=== PATIENT | female | born 1945 | race Caucasian/White ===

== ENCOUNTER 2023-11-07 06:42 | Inpatient (IN) | payer OTHER ==
[2023-11-07] MEDS ORDERED: FUROSEMIDE 40 MG/4 ML VIAL ONE (07:28)
[2023-11-07 07:36] LABS: Absolute Lymphocytes (CBC) 0.2 K/uL (0.7-4.9); Absolute Monocytes 0.3 K/uL (0.1-1.3); Absolute Neutrophil 6.1 K/uL (1.8-8.0); Basophils % 0.2 % (0-1.3); Hematocrit 37.3 % (36.0-45.0); Lymphocytes % 3.3 % (15.3-44.8); MCH 31.3 pg (27.0-35.0); MCHC 34.8 g/dL (32.0-36.0); MPV 7.9 fL (7.6-11.3); Monocytes % 4.1 % (3.3-12.3); Neutrophils % 92.4 % (41.7-73.7); Nucleated Red Blood Cells % 0.1 % (0-0); Platelets 139 thou/uL (152-406); RBC Red Blood Cell Count 4.15 M/uL (3.86-4.86); Red Cell Distribution Width 13.5 % (12.1-15.2)
[2023-11-07 07:39] LABS: PT Prothrombin Time 15.1 SECONDS (9.5-12.5); Protime INR 1.39
[2023-11-07] MEDS ORDERED: KETOROLAC 30 MG/ML INJ ONE (07:43)
[2023-11-07] MEDS ORDERED: ONDANSETRON 4 MG/2 ML VIAL ONE (07:43)
[2023-11-07 07:59] LABS: Albumin 3.1 g/dL (3.4-5.0); Albumin/Globulin Ratio 0.7 (1.1-1.8); Anion Gap 8.6 mEq/L (5.0-15.0); Bilirubin Indirect, Calculated 1.2 mg/dL (0.2-0.8); Bilirubin Total 2.2 mg/dL (0.2-1.0); Globulin 4.6 g/dL (2.3-3.5); Protein, Total 7.7 g/dL (6.4-8.2); Troponin High Sensitivity 39.5 pg/mL (<58.9)
[2023-11-07 08:01] LABS: SARS-CoV-2 Antigen CONTROL BLUE LINE VIS/BG OK
[2023-11-07 08:02] LABS: SARS-CoV-2 Antigen Rapid Res Negative (Negative)
[2023-11-07 08:03] LABS: Potassium 2.6 mEq/L (3.5-5.1)
[2023-11-07 08:44] LABS: Platelet Estimate ADEQ; Platelets Clumped NOTED; White Blood Cell Scan OK (OK)
[2023-11-07 08:45] LABS: Blood Morphology Comment NOTED (NOT SEEN); Platelets, Giant NOTED; Rouleau NOTED
[2023-11-07] MEDS ORDERED: POTASSIUM CL SA 10 MEQ TAB PO ONE (09:30)
--- NOTE | 2023-11-07 09:38 | RAD REPORT ---
EXAM DESCRIPTION: Milagros Single View11/07/2023 8:07 am CLINICAL HISTORY: COUGH COMPARISON: CHEST SINGLE VIEW dated 01/26/2013; CHEST SINGLE VIEW dated 05/29/2008 TECHNIQUE: Portable AP view of the chest. FINDINGS: New ill-defined rounded/ovoid opacities in the midlung bilaterally and the right lower lob e. No pneumothorax or effusion. The cardiomediastinal contours are unremarkable. IMPRESSION: New bilateral airspace opacities as above, may represent areas of early pneumonitis or n odules of indeterminate origin. Additional evaluation by CT of the chest would be helpful.
[2023-11-07] MEDS ORDERED: NA CHLORIDE 0.9% 100 ML ONE (09:47)
[2023-11-07] MEDS ORDERED: CEFTRIAXONE 1000 MG/VIAL ONE (09:47)
--- NOTE | 2023-11-07 09:49 | ER ---
Nurse's Notes [facility] Name: Sherin Leon Age: 78 yrs Sex: Female : 1945 Arrival Date: 11/07/2023 Time: 06:42 Bed 8 Private MD: Diagnosis: Pulmonary edema;Hypokalemia;Hypoxia Presentation: 11/06 06:50 Chief complaint: Patient states: Been sick the last 2-3 days with SOB, cough, jw7 congestion, fever, and chest pain to right side during inspiration and expiration. 06:50 Coronavirus screen: congestion, cough unrelated to allergies, diarrhea, fatigue, fever, jw7 shortness of breath. Ebola Screen: No symptoms or risks identified at this time. Initial Sepsis Screen: Does the patient meet any 2 criteria? No. Patient's initial sepsis screen is negative. Does the patient have a suspected source of infection? No. Patient's initial sepsis screen is negative. Risk Assessment: Do you want to hurt yourself or someone else? Patient reports no desire to harm self or others. Onset of symptoms was November 04, 2023. Care prior to arrival: Medication(s) given: DuoNeb Tx X1 IV initiated. 20 GA, in the right antecubital area. 06:50 Method Of Arrival: EMS: [facility] 7 06:50 Acuity: RANDI 3 jw7 Triage Assessment: 06:50 General: Appears in no apparent distress. uncomfortable, Behavior is calm, cooperative, jw7 appropriate for age. Pain: Complains of pain in right lateral anterior chest Pain does not radiate. Pain currently is 10 out of 10 on a pain scale. Quality of pain is described as sharp, Pain began 2-3 days ago. Is intermittent. EENT: No deficits noted. No signs and/or symptoms were reported regarding the EENT system. Neuro: Level of Consciousness is awake, alert, obeys commands, Oriented to person, place, time, situation, Appropriate for age. Cardiovascular: Heart tones S1 S2 present Capillary refill < 3 seconds Clubbing of nail beds is absent JVD is absent Patient's skin is warm and dry. Respiratory: Reports shortness of breath cough that is Airway is patent Trachea midline Respiratory effort is even, unlabored, Respiratory pattern is regular, symmetrical, Breath sounds with rhonchi bilaterally. Onset: The symptoms/episode began/occurred 3 days ago, the patient has moderate shortness of breath. GI: Abdomen is round non-distended, Bowel sounds present X 4 quads. Abd is soft and non tender X 4 quads. : No deficits noted. No signs and/or symptoms were reported regarding the genitourinary system. Derm: Skin is intact, is healthy with good turgor, Skin is dry, Skin is normal, Skin temperature is warm. Musculoskeletal: Circulation, motion, and sensation intact. Range of motion: intact in all extremities. Historical: - Allergies: 06:50 No Known Allergies; jw7 - Home Meds: 06:50 Cozaar Oral [Active]; jw7 - PMHx: 06:50 Hypertension; Cellulitis; jw7 - PSHx: 06:50 Right Hip; jw7 - Immunization history:: Adult Immunizations up to date, Client reports having NOT received the Covid vaccine. Flu vaccine is not up to date. - Infectious Disease History:: Denies. - Social history:: Smoking status: Patient denies any tobacco usage or history of. Patient/guardian denies using alcohol, street drugs, IV drugs. - Family history:: not pertinent. Screenin:50 [facility] ED Fall Risk Assessment (Adult) History of falling in the last 3 months, jw7 including since admission No falls in past 3 months (0 pts) Confusion or Disorientation No (0 pts) Intoxicated or Sedated No (0 pts) Impaired Gait No (0 pts) Mobility Assist Device Used No (0 pt) Altered Elimination Yes (1 pt) Score/Fall Risk Level 0 - 2 = Low Risk Oriented to surroundings, Maintained a safe environment, Educated pt \T\ family on fall prevention, incl call for assistance when getting out of bed. Abuse screen: Denies threats or abuse. Denies injuries from another. Nutritional screening: No deficits noted. Tuberculosis screening: No symptoms or risk factors identified. Assessment: 07:05 General: Appears uncomfortable, ill, Behavior is calm, cooperative, appropriate for ll1 age. Pain: Complains of pain in right lateral anterior chest Quality of pain is described as aching. Cardiovascular: Rhythm is regular. Respiratory: Reports shortness of breath cough that is pain with cough Airway is patent Trachea midline Respiratory effort is even, labored, Respiratory pattern is regular, Breath sounds with crackles bilaterally. GI: Reports diarrhea, nausea. EENT: Reports nasal congestion. 08:01 Reassessment: No changes from previously documented assessment. Patient and/or family ll1 updated on plan of care and expected duration. Pain level reassessed. Patient is alert, oriented x 3, equal unlabored respirations, skin warm/dry/pink. 08:36 Reassessment: No changes from previously documented assessment. Patient and/or family ll1 updated on plan of care and expected duration. Pain level reassessed. Patient is alert, oriented x 3, equal unlabored respirations, skin warm/dry/pink. Patient states symptoms have improved. 09:35 Reassessment: No changes from previously documented assessment. Patient and/or family ll1 updated on plan of care and expected duration. Pain level reassessed. Patient is alert, oriented x 3, equal unlabored respirations, skin warm/dry/pink. 10:35 Reassessment: No changes from previously documented assessment. Patient and/or family ll1 updated on plan of care and expected duration. Pain level reassessed. Patient is alert, oriented x 3, equal unlabored respirations, skin warm/dry/pink. 10:50 Reassessment: Wanted to stay in her own clothes. 1 Vital Signs: 06:50 BP 148 / 64; Pulse 105; Resp 20 S; Temp 99.1(O); Pulse Ox 97% on R/A; Weight 72.57 kg; jw7 Height 5 ft. 6 in. ; Pain 10/10; 07:30 BP 150 / 72; Pulse 95; Resp 20; Pulse Ox 86% on 1.5 lpm NC; ll1 08:04 Pulse 95; Resp 20; Pulse Ox 91% on 3 lpm NC; ll1 09:04 BP 144 / 69; Pulse 97; Resp 19; Pulse Ox 91% on 4 lpm NC; ll1 09:48 BP 127 / 90; Pulse 94; Resp 20; Pulse Ox 91% on 4 lpm NC; ph 10:44 BP 159 / 84; Pulse 96; Resp 20; Temp 99.5(O); Pulse Ox 91% on 4 lpm NC; ll1 06:50 Body Mass Index 25.82 (72.57 kg, 167.64 cm) [facility] 06:50 Pain Scale: Adult [facility] 08:04 O2 sat. 80-88%, Dr. Castellanos informed. Upped to 4 L NC ll1 10:44 90%-93% O2 4L NC ll1 ED Course: 06:50 Patient arrived in ED. jj6 06:50 Arm band placed on. jw7 06:50 Patient has correct armband on for positive identification. Bed in low position. Call jw7 light in reach. Side rails up X 1. Provided Education on: Use of Call Light. Client placed on continuous cardiac and pulse oximetry monitoring. NIBP monitoring applied. 06:50 Maintain EMS IV. Dressing intact. Good blood return noted. Site clean \T\ dry. Gauge \T\ jw 7 site: 20g RAC. 06:57 Suman Castellanos MD is Attending Physician. rt 07:05 Initial lab(s) drawn, by me, sent to lab. ll1 07:12 Triage completed. jw7 07:20 COVID swab sent to lab. Flu and/or RSV swab sent to lab. Strep swab sent to lab. ll1 07:24 Jasmin Fall, RN is Primary Nurse. ll1 07:24 SARS RAPID Sent. ll1 07:24 Flu Sent. ll1 07:24 Strep Sent. ll1 07:24 Blood Culture Adult (2) Sent. ll1 07:24 EKG done, by ED staff, reviewed by Suman Castellanos MD. em1 07:25 Second set of blood cultures drawn by me. ll1 08:07 XRAY Chest (1 view) In Process Unspecified. EDMS 08:37 Lights dimmed. Warm blanket given. ll1 08:37 PO fluids given. ice chips. ll1 08:37 yellow fall socks applied. New brief at BS. ll1 09:47 Nia Lara MD is Hospitalizing Provider. rt 10:16 CT Chest W/ Con In Process Unspecified. EDMS 10:30 Repeat lab(s) drawn. by me, sent to lab. ll1 Administered Medications: 07:04 CANCELLED (Duplicate Order): ns 0.9% 500 ml IV at bolus once rt 07:04 CANCELLED (Duplicate Order): ns 0.9% 1000 ml IV at 125 ml/hr continuous rt 07:04 CANCELLED (Duplicate Order): rocephin1 grams IV at per protocol once; Given slow IV rt push per pharmacy instructions 07:34 Drug: Furosemide IVP 40 mg IVP once; give over 2 minutes Route: IVP; Site: right ll1 antecubital; 10:37 Follow up: Response: No adverse reaction ll1 07:59 Not Given (Patient Refused): nitroglycerin0.4 mg Sublingual once; every five minute if ll1 needed x3 07:59 Drug: Ondansetron IVP 4 mg IVP once; over 2 minutes Route: IVP; Site: right antecubital;ll1 10:38 Follow up: Response: No adverse reaction ll1 09:35 Drug: Potassium Chloride PO Liquid 40 mEq PO once Route: PO; ll1 10:38 Follow up: Response: No adverse reaction ll1 10:33 Drug: Rocephin - Rocephin (cefTRIAXone) IVPB 2 grams IVPB once over 30 mins; (mix in ll1 100 mL NS) Route: IVPB; Infused Over: 30 mins; Site: right antecubital; 11:32 Drug: NS 0.9% IV 1000 ml IV at 1 bolus Per protocol; 1000 mL bolus Route: IV; Rate: 1 ph bolus; Site: right antecubital; Outcome: 09:48 Decision to Hospitalize by Provider. rt 11:32 Patient left the ED. ph Signatures: Dispatcher [employer] Marcelo Calix em1 Eun Pablo RN RN ph Jasmin Fall RN RN ll1 Mayuri Stockj6 Marce Garcia RN RN jw7 Suman Castellanos MD MD rt Corrections: (The following items were deleted from the chart) 09:06 08:04 Pulse 95bpm; Resp 20bpm; Pulse Ox 91% 3 lpm Nasal Cannula; ll1 ll1
--- NOTE | 2023-11-07 09:49 | EDPHYS ---
Physician Documentation [facility] Name: Sherin Leon Age: 78 yrs Sex: Female : 1945 Arrival Date: 11/07/2023 Time: 06:42 Bed 8 Private MD: ED Physician Suman Castellanos HPI: 11/06 07:50 This 78 yrs old Female presents to ER via EMS with complaints of Breathing Difficulty. rt 07:50 Patient presents to the ED with about 2 days of cough, right-sided chest pain, rt difficulty breathing. Is been progressively worsening. States that the symptoms are worse at nighttime. Denies other acute complaints at this time, symptoms are moderate in severity, no other aggravating or alleviating factors.. Historical: - Allergies: 06:50 No Known Allergies; jw7 - Home Meds: 06:50 Cozaar Oral [Active]; jw7 - PMHx: 06:50 Hypertension; Cellulitis; jw7 - PSHx: 06:50 Right Hip; jw7 - Immunization history:: Adult Immunizations up to date, Client reports having NOT received the Covid vaccine. Flu vaccine is not up to date. - Infectious Disease History:: Denies. - Social history:: Smoking status: Patient denies any tobacco usage or history of. Patient/guardian denies using alcohol, street drugs, IV drugs. - Family history:: not pertinent. ROS: 07:50 Constitutional: Negative for fever, chills, and weight loss, Abdomen/GI: Negative for rt abdominal pain, nausea, vomiting, diarrhea, and constipation, MS/Extremity: Negative for injury and deformity, Skin: Negative for injury, rash, and discoloration, Neuro: Negative for headache, weakness, numbness, tingling, and seizure, 07:50 Cardiovascular: Positive for chest pain, Negative for edema, 07:50 Respiratory: Positive for cough, shortness of breath, Exam: 07:50 Constitutional: This is a well developed, well nourished patient who is awake, alert, rt and in no acute distress. Head/Face: Normocephalic, atraumatic. Chest/axilla: Normal chest wall appearance and motion. Nontender with no deformity. No lesions are appreciated. Cardiovascular: Regular rate and rhythm with a normal S1 and S2. No gallops, murmurs, or rubs. Normal PMI, no JVD. No pulse deficits. Abdomen/GI: Soft, non-tender, with normal bowel sounds. No distension or tympany. No guarding or rebound. No evidence of tenderness throughout. Skin: Warm, dry with normal turgor. Normal color with no rashes, no lesions, and no evidence of cellulitis. MS/ Extremity: Pulses equal, no cyanosis. Neurovascular intact. Full, normal range of motion. Neuro: Awake and alert, GCS 15, oriented to person, place, time, and situation. Cranial nerves II-XII grossly intact. Motor strength 5/5 in all extremities. Sensory grossly intact. Cerebellar exam normal. Normal gait. 07:50 ECG was reviewed by the Attending Physician. 07:50 Respiratory: Crackles heard on all lung rodriguez, no respiratory distress, Vital Signs: 06:50 BP 148 / 64; Pulse 105; Resp 20 S; Temp 99.1(O); Pulse Ox 97% on R/A; Weight 72.57 kg; jw7 Height 5 ft. 6 in. ; Pain 10/10; 07:30 BP 150 / 72; Pulse 95; Resp 20; Pulse Ox 86% on 1.5 lpm NC; ll1 08:04 Pulse 95; Resp 20; Pulse Ox 91% on 3 lpm NC; ll1 09:04 BP 144 / 69; Pulse 97; Resp 19; Pulse Ox 91% on 4 lpm NC; ll1 09:48 BP 127 / 90; Pulse 94; Resp 20; Pulse Ox 91% on 4 lpm NC; ph 10:44 BP 159 / 84; Pulse 96; Resp 20; Temp 99.5(O); Pulse Ox 91% on 4 lpm NC; ll1 06:50 Body Mass Index 25.82 (72.57 kg, 167.64 cm) [facility] 06:50 Pain Scale: Adult [facility] 08:04 O2 sat. 80-88%, Dr. Castellanos informed. Upped to 4 L NC ll1 10:44 90%-93% O2 4L NC ll1 MDM: 06:58 Patient medically screened. rt 09:50 Differential diagnosis: CHF exacerbation, Chronic Obstructive Pulmonary Disease rt pulmonary edema. Data reviewed: vital signs, nurses notes, lab test result(s), EKG, radiologic studies. Consideration of Admission/Observation Patient was admitted/placed on observation. Management of patient was discussed with the following: Hospitalist: Agrees to admit. Independent interpretation of the following test(s) in the Emergency Department X-Ray: My interpretation is Pulmonary edema seen on interpretation of x-ray images. Counseling: I had a detailed discussion with the patient and/or guardian regarding the historical points, exam findings, and any diagnostic results supporting the discharge/admit diagnosis, lab results, radiology results, the need for further work-up and treatment in the hospital. Response to treatment: the patient's symptoms have mildly improved after treatment. ED course: Clinically, I believe that the patient is volume overloaded. Suspect pulmonary edema as the etiology. Will cover empirically given possible pneumonitis, CT scan is ordered. Patient to be admitted for further care.. 11/06 06:56 Order name: Basic Metabolic Panel; Complete Time: 08:09 [facility] 11/06 06:56 Order name: CBC with Diff; Complete Time: 08:46 [facility] 11/06 06:56 Order name: LFT's; Complete Time: 08:09 [facility] 11/06 06:56 Order name: Magnesium; Complete Time: 08:09 [facility] 11/06 06:56 Order name: NT PRO-BNP; Complete Time: 08:09 [facility] 11/06 06:56 Order name: PT-INR; Complete Time: 08:09 [facility] 11/06 06:56 Order name: Troponin HS; Complete Time: 08:09 [facility] 11/06 06:56 Order name: Blood Culture Adult (2) [facility] 11/06 06:56 Order name: Lactate w/ 2H reflex if indic.; Complete Time: 08:09 [facility] 11/06 06:56 Order name: SARS RAPID; Complete Time: 08:09 [facility] 11/06 06:56 Order name: Flu; Complete Time: 08:09 [facility] 11/06 06:56 Order name: Strep; Complete Time: 08:09 [facility] 11/06 07:42 Order name: CBC Smear Scan; Complete Time: 08:46 [facility] 11/06 11:05 Order name: Lactate Sepsis 2 HR Follow-up; Complete Time: 11:10 [facility] 11/06 06:56 Order name: XRAY Chest (1 view); Complete Time: 09:39 [facility] 11/06 09:47 Order name: CT Chest W/ Con rt 11/06 06:56 Order name: EKG; Complete Time: 06:57 [facility] 11/06 06:56 Order name: Cardiac monitoring; Complete Time: 07:24 [facility] 11/06 06:56 Order name: EKG - Nurse/Tech; Complete Time: 07:24 [facility] 11/06 06:56 Order name: IV Saline Lock; Complete Time: 07:24 [facility] 11/06 06:56 Order name: Labs collected and sent; Complete Time: 07:24 [facility] 11/06 06:56 Order name: O2 Per Protocol; Complete Time: 07:24 [facility] 11/06 06:56 Order name: O2 Sat Monitoring; Complete Time: 07:24 [facility] EC:50 Rate is 104 beats/min. Rhythm is regular, Sinus tachycardia with No ectopy. QRS Burns is rt Normal. CA interval is normal. QRS interval is normal. QT interval is normal. No Q waves. T waves are Normal. No ST changes noted. Interpreted by me. Administered Medications: 07:04 CANCELLED (Duplicate Order): ns 0.9% 500 ml IV at bolus once rt 07:04 CANCELLED (Duplicate Order): ns 0.9% 1000 ml IV at 125 ml/hr continuous rt 07:04 CANCELLED (Duplicate Order): rocephin1 grams IV at per protocol once; Given slow IV rt push per pharmacy instructions 07:34 Drug: Furosemide IVP 40 mg IVP once; give over 2 minutes Route: IVP; Site: right ll1 antecubital; 10:37 Follow up: Response: No adverse reaction ll1 07:59 Not Given (Patient Refused): nitroglycerin0.4 mg Sublingual once; every five minute if ll1 needed x3 07:59 Drug: Ondansetron IVP 4 mg IVP once; over 2 minutes Route: IVP; Site: right antecubital;ll1 10:38 Follow up: Response: No adverse reaction ll1 09:35 Drug: Potassium Chloride PO Liquid 40 mEq PO once Route: PO; ll1 10:38 Follow up: Response: No adverse reaction ll1 10:33 Drug: Rocephin - Rocephin (cefTRIAXone) IVPB 2 grams IVPB once over 30 mins; (mix in ll1 100 mL NS) Route: IVPB; Infused Over: 30 mins; Site: right antecubital; 11:32 Drug: NS 0.9% IV 1000 ml IV at 1 bolus Per protocol; 1000 mL bolus Route: IV; Rate: 1 ph bolus; Site: right antecubital; Disposition: 09:50 Critical Care:. rt Disposition Summary: 11/07/23 09:48 Hospitalization Ordered Notes: Hospitalization Status: Observation rt Provider: Nia Lara rt Location: Telemetry/MedSurg (observation) rt Condition: Fair rt Problem: new rt Symptoms: have improved rt Bed/Room Type: Standard rt Room Assignment: 230(11/07/23 10:48) eb Diagnosis - Pulmonary edema rt - Hypokalemia rt - Hypoxia rt Forms: - Medication Reconciliation Form rt - SBAR form rt - Leadership Thank You Letter rt Critical care time excluding procedures: 09:50 Critical care time: Bedside Care: 30 minutes, Consultation: 5 minutes. Total time: 35 rt minutes Signatures: Dispatcher [employer] EDGo Guerrero MD MD cha Hall, Patricia RN RN ph Kateryna Farmer Lynsay, RN RN ll1 Marce Garcia RN RN jw7 Suman Castellanos MD MD rt Corrections: (The following items were deleted from the chart) 06:57 06:56 BASIC METABOLIC PANEL+C.LAB.BRZ ordered. EDMS EDMS 06:57 06:56 CBC+H.LAB.BRZ ordered. EDMS EDMS 06:57 06:56 HEPATIC FUNCTION+C.LAB.BRZ ordered. EDMS EDMS 06:57 06:56 MAGNESIUM+C.LAB.BRZ ordered. EDMS EDMS 06:57 06:57 PROBNP+C.LAB.BRZ ordered. EDMS EDMS 06:57 06:57 PROTIME (+INR)+COAG.LAB.BRZ ordered. EDMS EDMS 06:57 06:57 Troponin High Sensitivity+C.LAB.BRZ ordered. EDMS EDMS 06:57 06:57 BLOOD CULTURE*+BA.LAB.BRZ ordered. EDMS EDMS 06:57 06:57 LACTATE+C.LAB.BRZ ordered. EDMS EDMS 06:57 06:57 SARS-COV-2 Antigen Rapid+I.LAB.BRZ ordered. EDMS EDMS 06:57 06:57 Influenza Screen (A \T\ B)+BA.LAB.BRZ ordered. EDMS EDMS 06:57 06:57 Group A Streptococcus Rapid Sc+BA.LAB.BRZ ordered. EDMS EDMS 07:04 06:56 NS 0.9% IV 500 ml IV at bolus once ordered. ta rt 07:04 06:56 NS 0.9% IV 1000 ml IV at 125 ml/hr continuous ordered. [facility] rt 07:04 06:56 Rocephin IV 1 grams IV at per protocol once; Given slow IV push per pharmacy rt instructions ordered. [facility] 10:48 09:48 rt eb
--- NOTE | 2023-11-07 10:33 | P.HP ---
Certification for Inpatient Patient admitted to: Inpatient <Abbi Chery - Last Filed: 11/07/23 12:59> Patient History Date of Service: 11/07/23 Reason for admission: Pneumonia, elevated BNP History of Present Illness: 78-year-old female with a past medical history of hypertension, cellulitis, resents to the emergency room with shortness of breath started 3 days ago. Getting progressively worse. She reports right-sided chest pain, radiates to the back, no reported history of TX, PCI. She reports shortness of breath is worse with exertion, she reports productive cough. She denies history of asthma, COPD, history of lung disease. No history of tobacco use, she reports chest pain no reported diaphoresis, headache, edema, nausea vomiting diarrhea. Plan to admit for atypical chest pain, sepsis secondary to pneumonia, Hypokalemia, Hypoxia, CT of the chest IMPRESSION: Multifocal airspace opacities as above, concerning for multifocal pneumonia. Chest x-ray IMPRESSION: New bilateral airspace opacities as above, may represent areas of early pneumonitis or nodules of indeterminate origin. sepsis secondary to pneumonia, laboratory evaluation elevated lactic 2.3 4.2, IV Rocephin, azithromycin ordered, nebs, potassium replacement, IV fluid normal saline x 2 L ordered, elevated BNP 1348, Lasix x 1 given, serial troponins ordered initial troponin 39.5, will order echo for the a.m., cardiology consult - Past Medical/Surgical History Diabetic: No -: Gerd -: chronic back and knee pain - Social History Alcohol use: Yes CD- Drugs: No Caffeine use: Yes <Abbi Chery - Last Filed: 11/07/23 12:59> Date of Service: 11/07/23 <Nia Lara - Last Filed: 11/08/23 04:57> Allergies No Known Allergies Allergy (Verified 01/27/13 09:25) Home Medications: Omeprazole [Prilosec] 40 mg PO DAILY 01/27/13 Losartan/Hydrochlorothiazide [Losartan-Hctz 50-12.5 mg Tab] 1 each PO DAILY 11/07/23 Review of Systems Per HPI <Abbi Chery - Last Filed: 11/07/23 12:59> Physical Examination - Physical Exam General: Alert, Mild distress, Other (Oriented x 3, has been) HEENT: Atraumatic, Normocephalic Neck: Supple, JVD not distended Respiratory: Crackles/rales, Expiratory wheezes, Inspiratory wheezes Cardiovascular: Other (Tachycardia) Capillary refill: <2 Seconds Gastrointestinal: Normal bowel sounds, Soft and benign Musculoskeletal: No clubbing, No swelling Integumentary: No breakdown, No significant lesion Neurological: Normal speech, Normal strength at 5/5 x4 extr, Other (Generalized weak) - Studies Laboratory Data (last 24 hrs) 11/07/23 11/07/23 11/07/23 07:05 07:05 07:05 WBC 6.60 Hgb 13.0 Hct 37.3 Plt Count 139 L PT 15.1 H INR 1.39 Sodium 136 Potassium 2.6 L* BUN 23 H Creatinine 1.08 H Glucose 102 Magnesium 2.0 Total Bilirubin 2.2 H AST 39 H ALT 39 Alkaline Phosphatase 68 Microbiology Data (last 24 hrs): 11/07/23 07:19 Nasopharnyx Influenza Type A Antigen Screen - Final 11/07/23 07:19 Nasopharnyx Influenza Type B Antigen Screen - Final 11/07/23 07:17 Throat Group A Streptococcus Rapid Screen - Final <Abbi Chery - Last Filed: 11/07/23 12:59> - Studies Laboratory Data (last 24 hrs) 11/07/23 11/07/23 11/07/23 07:05 07:05 07:05 WBC 6.60 Hgb 13.0 Hct 37.3 Plt Count 139 L PT 15.1 H INR 1.39 Sodium 136 Potassium 2.6 L* BUN 23 H Creatinine 1.08 H Glucose 102 Magnesium 2.0 Total Bilirubin 2.2 H AST 39 H ALT 39 Alkaline Phosphatase 68 Microbiology Data (last 24 hrs): 11/07/23 07:19 Nasopharnyx Influenza Type A Antigen Screen - Final 11/07/23 07:19 Nasopharnyx Influenza Type B Antigen Screen - Final 11/07/23 07:17 Throat Group A Streptococcus Rapid Screen - Final <Nia Lara - Last Filed: 11/08/23 04:57> Assessment and Plan - Plan Assessment plan Sepsis secondary to pneumonia without shock Acute hypoxic respiratory failure secondary to pneumonia Lactic acidosis Pulmonary consult, O2 2 L keep sats greater than 90 2L normal saline (after repeat increasing lactic, given IV Rocephin, (added aft er worsening lactic) azithromycin given, albuterol elevated lactic 2.3 4.2, IV Rocephin, azithromycin ordered, nebs, potassium replacement, IV fluid normal saline x 2 L ordered, Trend lactic, 2.3, o2 L keep sats greater than 90% shortness of breath started 3 days ago. Getting progressively worse. She reports right-sided chest pain, radiates to the back, no reported history of TX, PCI. She reports shortness of breath is worse with exertion, she reports productive cough. She denies history of asthma, COPD, history of lung disease. No history of tobacco use CT of the chest IMPRESSION: Multifocal airspace opacities as above, concerning for multifocal pneumonia. Chest x-ray IMPRESSION: New bilateral airspace opacities as above, may represent areas of early pneumonitis or nodules of indet erminate origin. sepsis secondary to pneumonia, laboratory evaluation Atypical chest pain Elevated BNP Cardiology, consult, telemetry EKGRate is 104 beats/min. Rhythm is regular, Sinus tachycardia with No ectopy. QRS [place] is Normal. [place] interval is normal. QRS interval is normal. QT interval is normal. No Q waves. T waves are Normal. No ST changes noted Recently started on Hyzaar, no cardiac history no history of CHF no history of PCI Initial troponin negative, initial troponin 39.5, Lasix 40 x 1 elevated BNP 1348, , will order echo for the a.m., Trend troponinn BNP Transaminitis AST elevated 30 ALT 39 History hypertension recently started on Hyzaar History cellulitis Full code Cardiac diet DVT Lovenox Disposition Home independent prior Discharge Plan: Home - Advance Directives Does patient have a Living Will: No Does patient have a Durable POA for Healthcare: No - Code Status/Comfort Care Code Status: Full Code Critical Care: No Time Spent Managing Pts Care (In Minutes): 55 <Abbi Chery - Last Filed: 11/07/23 12:59> Date of Service: 11/07/23 Patient is a 78yo who was admitted to the hospital with respiratory failure. I came to see the patient and she was in respiratory distress. We moved her to [facility]. She was on BiPAP. She appears to have a pneumonic infiltrate. Unable to follow-up CT imaging from multiple computers. Continue with nebs along with antibiotic regimen. Patient's BNP is elevated as well as troponin. Cardiology consultation awaiting echocardiogram. Will wean off of BiPAP support shortly. Patient chart was reviewed and patient was seen and examined. GREGORY history and physical reviewed as well. Agree with assessment and plan as mentioned above. Most of the MDM was done by myself and plan of care was discussed with GREGORY as well as the patient. Anticipated length of stay is 3 to 4 days. <Nia Lara - Last Filed: 11/08/23 04:57>
[2023-11-07] MEDS ORDERED: MORPHINE 4 MG/ML SYR IV PRN (10:45)
[2023-11-07] MEDS ORDERED: NA CHLORIDE 0.9% 1,000 ML ONE (11:21)
--- NOTE | 2023-11-07 11:27 | RAD REPORT ---
EXAM DESCRIPTION: CT - Thorax W/ Con - 11/07/2023 10:15 am CLINICAL HISTORY: COUGH COMPARISON: CTANGIO CHEST FOR PE dated 05/29/2008; Chest Single View dated 11/07/2023 TECHNIQUE: Axial thin cut images of the chest were obtained without IV contrast. Multiplanar reforma ts were generated and reviewed. All CT scans are performed using dose optimization technique as appropriate and may include automated exposure control or mA/KV adjustment according to patient size. FINDINGS: Multiple rounded/ovoid ill-defined consolidative opacities throughout both lungs. Addition al dependent subsegmental airspace opacities largest in the right lower lobe. No pleural thickening o r pleural effusion. No pneumothorax. No abnormal mediastinal or hilar masses or lymphadenopathy seen. No significant aortic or pulmonary a rtery findings. Assessment is limited in the absence of IV contrast. No chest wall mass or abnormal axillary lymphadenopathy. Evaluation of the solid abdominal structures reveals no suspicious findings. Diverticulum arising fro m the gastric fundus is incidentally noted. IMPRESSION: Multifocal airspace opacities as above, concerning for multifocal pneumonia.
[2023-11-07] MEDS: NA CHLORIDE 0.9% 1,000 ML IV ONE ×2 (12:08→12:30)
[2023-11-07] MEDS: KCL 20 MEQ/100 mL IVPB 20 MEQ/100 ML BAG IV SCH (12:53)
[2023-11-07] MEDS: METHYLPREDNISOLONE 125 MG INJ IV ONE (12:54)
[2023-11-07] MEDS: FUROSEMIDE 40 MG/4 ML VIAL IV ONE (13:04)
[2023-11-07] MEDS: MORPHINE 4 MG/ML SYR IV ONE (13:05)
[2023-11-07] MEDS: ALBUTEROL 2.5 MG/3 ML NEB SOL NEB PRN (13:36)
[2023-11-07] MEDS: HYDRALAZINE HCL 20 MG/ML VIAL IV ONE (13:39)
[2023-11-07] MEDS: AZITHROMYCIN IV 500 MG in NA CHLORIDE 0.9% 250 ML IVPB SCH (13:47)
[2023-11-07 14:02] LABS: Anion Gap 9.8 mEq/L (5.0-15.0); Potassium 2.8 mEq/L (3.5-5.1)
[2023-11-07 14:43] LABS: Sqamous Epithelial <5 /HPF (None Seen); Urine Bacteria <20 /HPF (<20); Urine Bilirubin NEGATIVE (Negative); Urine Blood Negative (Negative); Urine Clarity Clear (Clear); Urine Color Light-Yellow (Yellow); Urine Culture Reflex Order NOT NEEDED; Urine Glucose NEGATIVE (Negative); Urine Ketones NEGATIVE (Negative); Urine Microscopic Reflex YN ORDER UMIC; Urine Mucus Slight /HPF (None Seen); Urine Nitrite NEGATIVE (Negative); Urine Protein TRACE (Negative); Urine Urobilinogen Normal (Normal); Urine WBC <5 /HPF (<5)
[2023-11-07] MEDS: ACETAMINOPHEN 500 MG TAB PO PRN (15:03)
[2023-11-07] MEDS: ACETAMINOPHEN 500 MG TAB PO ONE (15:37)
[2023-11-07] MEDS: METOPROLOL TARTRATE 5 MG/5 ML INJ IV STA ×2 (15:40→15:49)
[2023-11-07] MEDS: ENOXAPARIN 80 MG/0.8 ML SQ ONE (15:45)
[2023-11-07 16:14] LABS: Arterial Blood Carboxyhemoglob 1.1 % (0-1.5); Blood Gas THB 13.9 g/dl (12-18)
[2023-11-07] MEDS: KETOROLAC 30 MG/ML INJ IV ONE (16:48)
[2023-11-07] MEDS: PNEUMOCOCCAL VACCINE 0.5 ML IMVAC ONE (17:00)
[2023-11-07 17:32] LABS: Anion Gap 9.2 mEq/L (5.0-15.0); Magnesium 1.8 mg/dL (1.6-2.4); Potassium 3.2 mEq/L (3.5-5.1)
[2023-11-07] MEDS: METOPROLOL TARTRATE 5 MG/5 ML INJ IV ONE (19:14)
[2023-11-07] MEDS: MAGNESIUM SULFATE 1 gm IVPB 1 GM/100 ML BAG IV ONE (19:59)
[2023-11-07] MEDS: ATORVASTATIN 40 MG TAB PO SCH (19:59)
[2023-11-07] MEDS: POTASSIUM CL SA 10 MEQ TAB PO ONE (19:59)
[2023-11-07] MEDS ORDERED: SODIUM CHLORIDE 1 GM TAB PO ONE (21:09)
--- NOTE | 2023-11-07 21:14 | CON ---
Date of Consultation: 11/07/2023 Reason For Consultation: Elevated NT-proBNP and troponin. History Of Present Illness: 78-year-old female with history of hypertension, presented to the emerge ncy room with shortness of breath and right-sided chest pain, productive cough. On the floor, she be came very hypoxic and tachypneic and tachycardiac. She was sent to the emergency room. Her NT-proBN P was elevated. She was given 1 dose of Lasix. She denies having any orthopnea or lower extremity e michele. Past Medical History: As outlined above in the HPI. Medications: Refer to reconciliation sheet for detailed list. Allergies: NO KNOWN DRUG ALLERGIES. Family History: No premature coronary artery disease or cancer. Social History: She does not smoke or drink. Does not use any drugs. Review of Systems: All systems reviewed and they were negative except as mentioned in the HPI. Physical Examination: Vital Signs: Reviewed. Head and Neck: Pupils are equal, reactive to light. Intact eye movements. No JVD. No cervical lym phadenopathy. Neck is supple. Thyroid is not enlarged. Lungs: Rhonchi bilaterally. No accessory muscle use or muscle retraction. Heart: Regular rate and rhythm. No extra sounds. Tachycardic. Abdomen: Soft, nontender. Bowel sounds positive. No organomegaly. No masses or hernia. No rigidi ty or rebound. Extremities: No edema. No clubbing or cyanosis. Intact pules. Skin: No rash. Neurologic: Alert, awake, oriented x3. No acute focal deficits appreciated. Investigations: Her troponins peaked at 90. NT-proBNP is elevated at 1300 range. BUN 21, creatinin e 1.29, and white blood cell count 6.6. CT scan showed bilateral pneumonia. Assessment/recommendations: 1.Acute respiratory failure due to pneumonia. Recommend wide-spectrum antibiotics. Blood and sputu m cultures and noninvasive ventilation with BiPAP if need be and high-flow oxygen. 2.Elevated NT-proBNP. She probably has chronic heart failure condition, but she is not fluid overlo aded clinically. Obtain an echo. I recommend to wait on any diuresis for now until we get the echo and further understand her heart status. 3.Hypertension. Blood pressure is elevated. Resume home medications. 4.Tachycardia. It is sinus tachycardia due to the presence of infection and fever. Nothing to do h ere from cardiac rodriguez, just to monitor and obtain echo tomorrow. 5.Dyslipidemia. Continue statin. SR/MODL Voice ID: [id number] Report ID: [id number]
[2023-11-08 05:12] LABS: Absolute Lymphocytes (CBC) 0.3 K/uL (0.7-4.9); Absolute Monocytes 0.6 K/uL (0.1-1.3); Hematocrit 34.5 % (36.0-45.0); Hemoglobin 11.9 g/dL (12.0-15.0); Lymphocytes % 2.4 % (15.3-44.8); MCH 31.1 pg (27.0-35.0); MCHC 34.5 g/dL (32.0-36.0); MCV 89.9 fL (80-100); MPV 9.3 fL (7.6-11.3); Monocytes % 5.6 % (3.3-12.3); Nucleated Red Blood Cells % 0.2 % (0-0); Platelets 144 thou/uL (152-406); RBC Red Blood Cell Count 3.84 M/uL (3.86-4.86); Red Cell Distribution Width 13.6 % (12.1-15.2)
[2023-11-08 05:31] LABS: Anion Gap 9.7 mEq/L (5.0-15.0); Magnesium 2.4 mg/dL (1.6-2.4); Potassium 3.7 mEq/L (3.5-5.1)
[2023-11-08] MEDS: ASPIRIN EC 81 MG TAB PO SCH (08:47)
[2023-11-08] MEDS: METHYLPREDNISOLONE 125 MG INJ IV SCH (08:47)
[2023-11-08] MEDS: CEFTRIAXONE 1,000 MG in NA CHLORIDE 0.9% 50 ML IVPB SCH (08:47)
--- NOTE | 2023-11-08 11:36 | P.PN ---
Subjective Date of Service: 11/08/23 Chief Complaint: Pneumonia, elevated BNP Subjective: No new changes Review of Systems 10-point ROS is otherwise unremarkable Physical Examination - Vital Signs Temperature: 97.1 F Blood Pressure: 108/63 Pulse: 94 Respirations: 18 Pulse Ox (%): 95 - Physical Exam General: Alert, In no apparent distress HEENT: Atraumatic, PERRLA, EOMI Neck: Supple, JVD not distended Respiratory: Clear to auscultation bilaterally, Normal air movement Cardiovascular: Regular rate/rhythm, Normal S1 S2 Gastrointestinal: Normal bowel sounds, No tenderness Musculoskeletal: No tenderness Integumentary: No rashes Neurological: Normal speech, Normal tone, Normal affect Lymphatics: No axilla or inguinal lymphadenopathy - Studies Microbiology Data (last 24 hrs): 11/07/23 07:19 Nasopharnyx Influenza Type A Antigen Screen - Final 11/07/23 07:19 Nasopharnyx Influenza Type B Antigen Screen - Final 11/07/23 07:17 Throat Group A Streptococcus Rapid Screen - Final Medications List Reviewed: Yes Assessment And Plan - Current Problems (Diagnosis) (1) Chronic heart failure Current Visit: Yes Status: Acute Plan: Patient looks euvolemic on exam, SOB and tachycardia and right sided chest pain are most likely due to PNA. Continue antibiotics. follow up on echo hold on diuresis (2) HTN (hypertension) Current Visit: Yes Status: Acute Plan: BP is soft, most likely secondary to infection, at home patient is on losartan/HCTZ, continue to hold. (3) HLD (hyperlipidemia) Current Visit: Yes Status: Acute Plan: continue lipitor 40 mg daily.
[2023-11-08] MEDS ORDERED: MIDODRINE HCL 5 MG TABLET PO SCH (11:47)
--- NOTE | 2023-11-08 11:55 | P.PN ---
Subjective Date of Service: 11/08/23 Chief Complaint: Pneumonia, elevated BNP Pt is resting comfortably in bed. She used BIPAP last night. Currently using 9L BNC. She is getting rocephin and flagyl. No other complaints. Review of Systems General: Unremarkable Eyes: Unremarkable ENT: Unremarkable Respiratory: SOB with Excertion Cardiovascular: Unremarkable Gastrointestinal: Unremarkable Genitourinary: Unremarkable Musculoskeletal: Unremarkable Integumentary: Unremarkable Neurological: Unremarkable Lymphatics: Unremarkable Physical Examination - Vital Signs Temperature: 97.1 F Blood Pressure: 108/63 Pulse: 94 Respirations: 18 Pulse Ox (%): 95 - Physical Exam General: Alert, In no apparent distress, Oriented x3 HEENT: Atraumatic, Normocephalic, PERRLA Neck: Supple, 2+ carotid pulse no bruit, JVD not distended Respiratory: Normal air movement, Diminished, Crackles/rales Cardiovascular: No edema, Normal pulses, Regular rate/rhythm, Normal S1 S2 Capillary refill: <2 Seconds Gastrointestinal: Normal bowel sounds, Soft and benign, Non-distended Musculoskeletal: No clubbing, No swelling - Studies Microbiology Data (last 24 hrs): 11/07/23 07:19 Nasopharnyx Influenza Type A Antigen Screen - Final 11/07/23 07:19 Nasopharnyx Influenza Type B Antigen Screen - Final 11/07/23 07:17 Throat Group A Streptococcus Rapid Screen - Final Medications List Reviewed: Yes Assessment And Plan - Plan Severe sepsis secondary to pneumonia without shock: Will continue 9L BNC, prn BIPAP, rocephin and azithro. F/u blood cx. lactate is 2.8 Acute hypoxic respiratory failure secondary to pneumonia: will continue treatment listed above. CT chest and CXR shows multifocal pna. Atypical chest pain: Will r/o ACS. troponin is 39.5. Pt denies any chest pain. Consulted Cardiology. Chronic heart failure: BNP is 1348. Pt is euvolemic. Will f/u Echo. Transaminitis: Will trend LFTs. AST 39. ALT 39 History hypertension: Continue home med. Recently started on Hyzaar DVT ppx: lovenox. Code: full Dispo: Pending hospital course.
--- NOTE | 2023-11-08 12:02 | P.PN ---
Subjective Date of Service: 11/08/23 Chief Complaint: Respiratory distress pneumonia Patient is 78 years of age admitted from home developed sudden onset of shortness of breath and then developed some supraventricular tachycardia was transferred to the ICU no prior history of cardiopulmonary problems patient has never smoked denies any history of fever or chills. With bilateral opacity most likely pneumonia feeling a little better Review of Systems 10-point ROS is otherwise unremarkable General: Weakness Respiratory: Shortness of Breath Physical Examination - Vital Signs Temperature: 97.1 F Blood Pressure: 108/63 Pulse: 94 Respirations: 18 Pulse Ox (%): 95 - Physical Exam General: Alert, Oriented x3 Respiratory: Clear to auscultation bilaterally Cardiovascular: No edema, Regular rate/rhythm Gastrointestinal: Normal bowel sounds, Soft and benign Musculoskeletal: No clubbing, No contractures Neurological: Normal speech - Studies Microbiology Data (last 24 hrs): 11/07/23 07:19 Nasopharnyx Influenza Type A Antigen Screen - Final 11/07/23 07:19 Nasopharnyx Influenza Type B Antigen Screen - Final 11/07/23 07:17 Throat Group A Streptococcus Rapid Screen - Final Medications List Reviewed: Yes
--- NOTE | 2023-11-08 12:22 | EKG ---
Test Date: 2023-11-07 Test Time: 15:30:32 Manager Data Warehouse: JANET MEASUREMENT RESULTS: Intervals: Rate: 131 NM: QRSD: 80 QT: 296 QTc: 437 [place]: P: NM: QRS: 30 T: 47 INTERPRETIVE STATEMENTS: Atrial fibrillation with rapid ventricular response Nonspecific ST abnormality, probably digitalis effect Abnormal ECG Compared to ECG 11/07/2023 07:22:08 ST (T wave) deviation now present Sinus tachycardia no longer present Electronically Signed On 11-08-23 12:21:00 CDT by Aubrey Cramer
--- NOTE | 2023-11-08 12:22 | EKG ---
Test Date: 2023-11-07 Test Time: 15:32:13 Assistant Professor Of Music: JANET MEASUREMENT RESULTS: Intervals: Rate: 131 MT: 138 QRSD: 78 QT: 300 QTc: 443 [place]: P: 51 MT: 138 QRS: 26 T: 46 INTERPRETIVE STATEMENTS: Sinus tachycardia with premature supraventricular complexes Nonspecific ST abnormality Abnormal ECG Compared to ECG 11/07/2023 15:30:32 Atrial premature complex(es) now present Atrial fibrillation no longer present ST (T wave) deviation still present Electronically Signed On 11-08-23 12:20:27 CDT by Aubrey Cramer
--- NOTE | 2023-11-08 12:22 | EKG ---
Test Date: 2023-11-07 Test Time: 15:54:51 Boot Trimmer: MAYRA MEASUREMENT RESULTS: Intervals: Rate: 94 AR: 134 QRSD: 78 QT: 338 QTc: 422 [place]: P: 48 AR: 134 QRS: 32 T: 59 INTERPRETIVE STATEMENTS: Normal sinus rhythm Normal ECG Compared to ECG 11/07/2023 07:22:08 Sinus tachycardia no longer present Electronically Signed On 11-08-23 12:20:16 CDT by Aubrey Cramer
--- NOTE | 2023-11-08 12:24 | EKG ---
Test Date: 2023-11-07 Test Time: 07:22:08 Demolition Expert: YONY MEASUREMENT RESULTS: Intervals: Rate: 104 [place]: 126 QRSD: 88 QT: 306 QTc: 402 [place]: P: 15 [place]: 126 QRS: 20 T: 38 INTERPRETIVE STATEMENTS: Sinus tachycardia Otherwise normal ECG Compared to ECG 01/27/2013 08:44:47 Sinus rhythm no longer present Electronically Signed On 11-08-23 12:21:47 CDT by Aubrey Cramer
--- NOTE | 2023-11-08 12:34 | P.CNS ---
Date of Consult: 11/08/23 Reason for Consult: Respiratory distress pneumonia Chief Complaint: Pneumonia, History of Present Illness: Patient is 78 years of age admitted with acute respiratory distress was found to have bilateral pulmonary infiltrates apparently developed supraventricular tachycardia and was transferred to the ICU became unstable prior to her had been admitted to the hospital there is no prior history of cardiopulmonary problems was treated for hypertension and does not smoke Allergies No Known Allergies Allergy (Verified 01/27/13 09:25) Home Medications: Omeprazole [Prilosec] 40 mg PO DAILY 01/27/13 Losartan/Hydrochlorothiazide [Losartan-Hctz 50-12.5 mg Tab] 1 each PO DAILY 11/07/23 - Past Medical/Surgical History Diabetic: No -: Gerd -: chronic back and knee pain -: HTN - Family History Sister Medical History: Heart disease Mother History Unknown: Yes Notes: no issues Father Medical History: Other (see notes) Notes: suicide - Social History Smoking Status: Never smoker Alcohol use: Yes CD- Drugs: No Caffeine use: Yes Place of Residence: Home Review of Systems 10-point ROS is otherwise unremarkable Physical Examination Temp Pulse Resp BP Pulse Ox 97.1 F 94 H 18 108/63 95 11/08/23 12:12 11/08/23 12:12 11/08/23 12:12 11/08/23 12:12 11/08/23 12:12 General: Alert, Oriented x3 Respiratory: Clear to auscultation bilaterally Cardiovascular: No edema, Regular rate/rhythm, Normal S1 S2 Gastrointestinal: Normal bowel sounds, Soft and benign Musculoskeletal: No clubbing, No swelling - Problems (1) Bilateral pneumonia Current Visit: Yes Status: Acute Plan: Patient is 78 years of age admitted with bilateral pulmonary infiltrates probably had pneumonia blood gases reviewed patient is mildly anemic normal white count procalcitonin is 53 which is significantly elevated started the patient on some steroids to help clear up the infiltrates continue with antibiot ics for now patient is on Rocephin and Zithromax she is not resistant she is not a risk factor for resistant organisms patient is currently hemodynamically stable I will also send panel for respiratory pathogens [employer] pneumonia plus panel chest x-ray CT scans all reviewed patient's BNP was also elevated echocardiogram pending Qualifiers: Pneumonia type: due to unspecified organism Lung location: unspecified part of lung Qualified Code(s): J18.9 - Pneumonia, unspecified organism
[2023-11-08] MEDS: METHYLPREDNISOLONE 40 MG INJ IV SCH (20:26)
[2023-11-09 04:55] LABS: Absolute Lymphocytes (CBC) 0.5 K/uL (0.7-4.9); Absolute Monocytes 0.9 K/uL (0.1-1.3); Absolute Neutrophil 11.9 K/uL (1.8-8.0); Basophils % 0.1 % (0-1.3); Hematocrit 35.1 % (36.0-45.0); Hemoglobin 12.1 g/dL (12.0-15.0); Lymphocytes % 3.6 % (15.3-44.8); MCH 31.2 pg (27.0-35.0); MCHC 34.5 g/dL (32.0-36.0); MCV 90.6 fL (80-100); MPV 8.9 fL (7.6-11.3); Monocytes % 6.5 % (3.3-12.3); Nucleated Red Blood Cells % 0.1 % (0-0); Platelets 179 thou/uL (152-406); RBC Red Blood Cell Count 3.87 M/uL (3.86-4.86); Red Cell Distribution Width 13.7 % (12.1-15.2)
[2023-11-09 04:59] LABS: Neutrophils % 89.8 % (41.7-73.7)
--- NOTE | 2023-11-09 07:00 | ECHO ---
HEIGHT: 5 ft 6 in WEIGHT: 170 lb 0 oz DATE OF STUDY: 11/08/[address]: Abbi Chery BLOOD DONOR RECRUITERMike 2-DIMENSIONAL: YES M.MODE: YES DOPPLER: YES COLOR FLOW: YES TDS: PORTABLE: YES DEFINITY: BUBBLE STUDY: DIAGNOSIS: EVALUATE FOR HEART CARDIAC HISTORY: CATHERIZATION: SURGERY: PROSTHETIC VALVE: PACEMAKER: MEASUREMENTS (cm) DIASTOLIC (NORMALS) SYSTOLIC (NORMALS) IVSd 1.0 (0.6-1.2) LA Diam 4.2 (1.9-4.0) LVEF 60-65% LVIDd 3.4 (3.5-5.7) LVIDs 2.1 (2.0-3.5) %FS 38% LVPWd 1.0 (0.6-1.2) Ao Diam 2.2 (2.0-3.7) 2 DIMENSIONAL ASSESSMENT: RIGHT ATRIUM: NORMAL LEFT ATRIUM: ENLARGED RIGHT VENTRICLE: NORMAL LEFT VENTRICLE: NORMAL TRICUSPID VALVE: TRACE TRICUSPID REGURGITATION MITRAL VALVE: TRACE MITRAL REGURGITATION PULMONIC VALVE: NORMAL AORTIC VALVE: NORMAL PERICARDIAL EFFUSION: NONE AORTIC ROOT: NORMAL LEFT VENTRICULAR WALL MOTION: NORMAL DOPPLER/COLOR FLOW: SEE BELOW COMMENTS: 1. NORMAL LEFT VENTRICULAR EJECTION FRACTION 60-65% WITH NORMAL WALL MOTION 2. LEFT ATRIAL ENLARGEMENT 3. GRADE I DIASTOLIC DYSFUNCTION 4. TRADE MITRAL REGURGITATION TECHNOLOGIST: ERIC BARRIOS
[2023-11-09] MEDS: METOPROLOL TARTRATE 5 MG/5 ML INJ IV STA (08:51)
[2023-11-09] MEDS: ONDANSETRON 4 MG/2 ML VIAL IV PRN (09:28)
--- NOTE | 2023-11-09 09:52 | RAD REPORT ---
EXAM DESCRIPTION: Milagros Single View11/09/2023 9:17 am CLINICAL HISTORY: Chest pain COMPARISON: November 07, 2023 FINDINGS: There has been worsening in the bilateral pulmonary areas of consolidation. Heart is mildly enlarged IMPRESSION: Worsening in the bilateral pulmonary areas of consolidation likely pneumonia
[2023-11-09 10:17] VITALS: BMI 27.4
[2023-11-09] MEDS: METOPROLOL TAR 25 MG TAB PO SCH (10:28)
--- NOTE | 2023-11-09 11:06 | P.PN ---
Subjective Date of Service: 11/09/23 Chief Complaint: Pneumonia, Pt is resting comfortably in bed. She used BIPAP last night. Currently using 6L BNC. Pt has productive wet cough. Echo shows EF 60 - 65% with grade I diastolic dysfunction. She is getting rocephin and flagyl. No other complaints. Review of Systems General: Unremarkable Eyes: Unremarkable ENT: Unremarkable Respiratory: Cough, SOB with Excertion Cardiovascular: Unremarkable Gastrointestinal: Unremarkable Genitourinary: Unremarkable Musculoskeletal: Unremarkable Integumentary: Unremarkable Neurological: Unremarkable Lymphatics: Unremarkable Physical Examination - Vital Signs Temperature: 98.0 F Blood Pressure: 127/90 Pulse: 121 Respirations: 14 Pulse Ox (%): 96 - Physical Exam General: Alert, In no apparent distress, Oriented x3 HEENT: Atraumatic, Normocephalic, PERRLA Neck: Supple, 2+ carotid pulse no bruit Respiratory: Normal air movement, Crackles/rales Cardiovascular: No edema, Normal pulses, Regular rate/rhythm, Normal S1 S2 Capillary refill: <2 Seconds Gastrointestinal: Normal bowel sounds, Soft and benign, Non-distended Musculoskeletal: No clubbing, No swelling Integumentary: No rashes, No breakdown Neurological: Normal speech, Normal strength at 5/5 x4 extr Lymphatics: No axilla or inguinal lymphadenopathy - Studies Microbiology Data (last 24 hrs): 11/07/23 07:25 Blood - Blood Gram Stain - Final Medications List Reviewed: Yes Assessment And Plan - Plan Severe sepsis secondary to pneumonia without shock: Will continue 6L BNC, prn BIPAP, rocephin and azithro. F/u blood cx. lactate is 2.8 Acute hypoxic respiratory failure secondary to pneumonia: will continue treatment listed above. CT chest and CXR shows multifocal pna. Atypical chest pain: Will r/o ACS. troponin is 39.5. Pt denies any chest pain. Consulted Cardiology. Chronic Diastolic heart failure: BNP is 1348. Pt is euvolemic. Echo shows EF 60 - 65% with grade I diastolic dysfunction. Transaminitis: Will trend LFTs. AST 39. ALT 39 History hypertension: Continue home med. Recently started on Hyzaar DVT ppx: lovenox. Code: full Dispo: Pending hospital course.
--- NOTE | 2023-11-09 12:33 | P.PN ---
Subjective Date of Service: 11/09/23 Chief Complaint: Pneumonia, Subjective: Improving (Patient is improving doing well he is now developed atrial fibrillation) Review of Systems General: Weakness Respiratory: Shortness of Breath Physical Examination - Vital Signs Temperature: 98.0 F Blood Pressure: 127/90 Pulse: 121 Respirations: 14 Pulse Ox (%): 96 - Physical Exam General: Alert, Oriented x3 Respiratory: Clear to auscultation bilaterally Cardiovascular: No edema, Regular rate/rhythm, Normal S1 S2 Gastrointestinal: Normal bowel sounds, Soft and benign - Studies Microbiology Data (last 24 hrs): 11/07/23 07:25 Blood - Blood Gram Stain - Final Medications List Reviewed: Yes Assessment And Plan - Current Problems (Diagnosis) (1) Bilateral pneumonia Current Visit: Yes Status: Acute Plan: Patient admitted with bilateral pneumonia still has some patchy infiltrates developed A-fib labs reviewed renal function has improved cultures are negative so far patient was febrile on admission continue to monitor procalcitonin level echocardiogram shows normal left ventricular function grade 1 diastolic dysfunction patient has bilateral patchy infiltrate Qualifiers: Pneumonia type: due to unspecified organism Lung location: unspecified part of lung Qualified Code(s): J18.9 - Pneumonia, unspecified organism (2) Atrial fibrillation Current Visit: Yes Status: Acute Plan: Patient has new onset of A-fib may be related to her underlying pneumonia DC albuterol agree with beta-blockers and anticoagulated with Lovenox need cardioversion if does not spontaneously cardiovert etiology has been consulted Qualifiers: Atrial fibrillation type: paroxysmal Qualified Code(s): I48.0 - Paroxysmal atrial fibrillation
[2023-11-09] MEDS ORDERED: METOPROLOL XL 25 MG TAB PO SCH (12:34)
[2023-11-09] MEDS: ENOXAPARIN 80 MG/0.8 ML SQ SCH (13:41)
[2023-11-09 14:10] LABS: Thyroid Stimulating Hormone 0.209 uIU/mL (0.358-3.740)
[2023-11-09] MEDS: predniSONE 20 MG TAB PO SCH (20:00)
--- NOTE | 2023-11-09 21:03 | PN ---
Date of Progress Note: 11/09/2023 Subjective: Seen at bedside, doing clinically well. Still with cough and mild shortness of breath. Review of Systems: Positive cough and mild shortness of breath. No nausea, vomiting, diarrhea. No abdominal pain. No dysuria, polyuria, or urinary urgency. All other systems reviewed were negative. Physical Examination: Vital Signs: Temperature is 98.0, pulse 62, breathing at 17, blood pressure 147/59, saturating 99%. General: Pleasant, elderly female, no apparent distress. Head and Neck: Pupils are equal, reactive to light. Intact eye movements. No JVD. No cervical lym phadenopathy. Neck: Supple. Thyroid is not enlarged. Lungs: Positive bilateral air entry with rhonchi bilaterally. No accessory muscle use or muscle ret raction. Heart: Regular rate and rhythm. No extra sounds. Abdomen: Soft, nontender. Bowel sounds positive. No organomegaly. No masses or hernia. No rigidi ty or rebound. Extremities: No clubbing, cyanosis, no edema. Neurologic: Alert, awake, oriented x3. No acute focal deficits appreciated. Investigations: BUN 44, creatinine 1.02, and troponin is peaked at 90 and down to 70. Assessment/recommendation: 1.Acute respiratory failure due to pneumonia. No acute heart failure picture is seen here. Continu e wide-spectrum antibiotics. 2.Elevated NT-proBNP. This is chronic heart failure likely and on the echo, ejection fraction is no rmal. She has only a grade 1 diastolic dysfunction. The patient needs blood pressure control and lo w-sodium diet as an outpatient. 3.Hypertension. Blood pressure is controlled. 4.Dyslipidemia. Continue statin. SR/MODL Voice ID: [id number] Report ID: [id number]
[2023-11-10 05:02] LABS: Absolute Lymphocytes (CBC) 0.9 K/uL (0.7-4.9); Absolute Monocytes 1.3 K/uL (0.1-1.3); Absolute Neutrophil 14.7 K/uL (1.8-8.0); Basophils % 0.2 % (0-1.3); Hematocrit 37.7 % (36.0-45.0); Hemoglobin 12.5 g/dL (12.0-15.0); Lymphocytes % 5.2 % (15.3-44.8); MCH 30.3 pg (27.0-35.0); MCHC 33.2 g/dL (32.0-36.0); MCV 91.3 fL (80-100); MPV 9.4 fL (7.6-11.3); Monocytes % 7.6 % (3.3-12.3); Nucleated Red Blood Cells % 0.1 % (0-0); Platelets 257 thou/uL (152-406); RBC Red Blood Cell Count 4.13 M/uL (3.86-4.86); Red Cell Distribution Width 13.7 % (12.1-15.2)
[2023-11-10 05:23] LABS: Anion Gap 8.3 mEq/L (5.0-15.0); Potassium 4.3 mEq/L (3.5-5.1)
[2023-11-10] MEDS ORDERED: VANCOMYCIN 1 GM in NA CHLORIDE 0.9% 250 ML IVPB SCH (08:00)
[2023-11-10] MEDS: CEFTRIAXONE 2,000 MG in NA CHLORIDE 0.9% 100 ML IV SCH (08:05)
[2023-11-10] MEDS: CLINDAMYCIN 900MG/D5W 900 MG/50 ML IVPB IV SCH (08:06)
[2023-11-10] MEDS ORDERED: AZITHROMYCIN 250 MG TAB PO SCH (09:00)
[2023-11-10] MEDS: MUCINEX DM 12HR.SR TAB PO PRN (09:49)
--- NOTE | 2023-11-10 10:47 | P.PN ---
Subjective Date of Service: 11/10/23 Chief Complaint: Pneumonia, Pt is resting comfortably in bed. Currently using 1L BNC. Pt has productive wet cough. Echo shows EF 60 - 65% with grade I diastolic dysfunction. She had new onset A. fib on 11/09/23. She is getting rocephin. No other complaints. Review of Systems General: Unremarkable Eyes: Unremarkable ENT: Unremarkable Respiratory: Cough, SOB with Excertion Cardiovascular: Unremarkable Gastrointestinal: Unremarkable Genitourinary: Unremarkable Musculoskeletal: Unremarkable Integumentary: Unremarkable Neurological: Unremarkable Lymphatics: Unremarkable Physical Examination - Vital Signs Temperature: 97.6 F Blood Pressure: 157/75 Pulse: 63 Respirations: 20 Pulse Ox (%): 98 - Physical Exam General: Alert, In no apparent distress, Oriented x3 HEENT: Atraumatic, Normocephalic, PERRLA Neck: Supple, 2+ carotid pulse no bruit, JVD not distended Respiratory: Normal air movement, Crackles/rales Cardiovascular: No edema, Normal pulses, Regular rate/rhythm, Normal S1 S2 Capillary refill: <2 Seconds Gastrointestinal: Normal bowel sounds, Soft and benign, Non-distended Musculoskeletal: No clubbing, No swelling Integumentary: No rashes, No breakdown Neurological: Normal speech, Normal strength at 5/5 x4 extr, Normal tone Lymphatics: No axilla or inguinal lymphadenopathy - Studies Microbiology Data (last 24 hrs): 11/07/23 07:25 Blood - Blood Anaerobic Blood Culture - Final Streptococcus Pyogenes 11/07/23 07:25 Blood - Blood Gram Stain - Final Medications List Reviewed: Yes Assessment And Plan - Plan Severe sepsis secondary to pneumonia without shock / bacteremia: Will continue 1L BNC, prn BIPAP, rocephin and azithro. F/u blood cx. lactate is 2.8 Bacteremia: Blood cx is growing strep pyogenes. Will continue rocephin 2mg daily, + clindamycin and f/u blood cx. Acute hypoxic respiratory failure secondary to pneumonia: will continue treatment listed above. CT chest and CXR shows multifocal pna. Atypical chest pain: Will r/o ACS. troponin is 39.5. Pt denies any chest pain. Consulted Cardiology. New onset A. fib RVR: HR has improved. Now 70. Will continue telemetry, metoprolol and therapeutic lovenox. Chronic Diastolic heart failure: BNP is 1348. Pt is euvolemic. Echo shows EF 60 - 65% with grade I diastolic dysfunction. Transaminitis: Will trend LFTs. AST 39. ALT 39 History hypertension: Continue home med. Recently started on Hyzaar DVT ppx: lovenox. Code: full Dispo: Pending hospital course. Will downgrade pt today
[2023-11-10] MEDS: MORPHINE 4 MG/ML SYR IV PRN (16:30)
--- NOTE | 2023-11-10 18:17 | P.PN ---
Subjective Date of Service: 11/10/23 Chief Complaint: Pneumonia, Subjective: No new changes Review of Systems 10-point ROS is otherwise unremarkable Physical Examination - Vital Signs Temperature: 98.7 F Blood Pressure: 168/78 Pulse: 72 Respirations: 16 Pulse Ox (%): 98 - Physical Exam General: Alert, In no apparent distress HEENT: Atraumatic, PERRLA, EOMI Neck: Supple, JVD not distended Respiratory: Clear to auscultation bilaterally, Normal air movement Cardiovascular: Regular rate/rhythm, Normal S1 S2 Gastrointestinal: Normal bowel sounds, No tenderness Musculoskeletal: No tenderness Integumentary: No rashes Neurological: Normal speech, Normal tone, Normal affect Lymphatics: No axilla or inguinal lymphadenopathy - Studies Microbiology Data (last 24 hrs): 11/07/23 07:25 Blood - Blood Anaerobic Blood Culture - Final Streptococcus Pyogenes 11/07/23 07:25 Blood - Blood Gram Stain - Final Medications List Reviewed: Yes Assessment And Plan - Current Problems (Diagnosis) (1) Chronic heart failure Current Visit: Yes Status: Acute Plan: Patient looks euvolemic on exam, SOB and tachycardia and right sided chest pain are most likely due to PNA. Continue antibiotics. follow up on echo hold on diuresis (2) HTN (hypertension) Current Visit: Yes Status: Acute Plan: BP is soft, most likely secondary to infection, at home patient is on losartan/HCTZ, continue to hold. (3) HLD (hyperlipidemia) Current Visit: Yes Status: Acute Plan: continue lipitor 40 mg daily. (4) Atrial fibrillation Current Visit: Yes Status: Acute Plan: Patient is un aware of history of AF, so might be new onset secondary to acute illiness currently in sinus rhythm Continue Lopressor 25 mg po BID Start Eliquis 5 mg po BID Stop lovenox. Qualifiers: Atrial fibrillation type: paroxysmal Qualified Code(s): I48.0 - Paroxysmal atrial fibrillation
[2023-11-10] MEDS ORDERED: SODIUM CHLORIDE 0.9% 10ML INJ IV PRN (20:47)
[2023-11-10] MEDS: PANTOPRAZOLE 40 MG INJ IVP ONE (22:11)
[2023-11-11 05:00] LABS: Absolute Lymphocytes (CBC) 1.2 K/uL (0.7-4.9); Absolute Monocytes 1.5 K/uL (0.1-1.3); Absolute Neutrophil 8.8 K/uL (1.8-8.0); Basophils % 0.1 % (0-1.3); Eosinophils % 0.2 % (0-4.4); Hematocrit 37.4 % (36.0-45.0); Hemoglobin 12.7 g/dL (12.0-15.0); Lymphocytes % 10.7 % (15.3-44.8); MCHC 33.8 g/dL (32.0-36.0); MCV 91.7 fL (80-100); MPV 8.7 fL (7.6-11.3); Monocytes % 13.1 % (3.3-12.3); Neutrophils % 75.9 % (41.7-73.7); Nucleated Red Blood Cells % 0.1 % (0-0); Platelets 278 thou/uL (152-406); RBC Red Blood Cell Count 4.08 M/uL (3.86-4.86); Red Cell Distribution Width 13.4 % (12.1-15.2)
[2023-11-11 05:13] LABS: Anion Gap 8.7 mEq/L (5.0-15.0); Potassium 3.7 mEq/L (3.5-5.1)
[2023-11-11 05:35] LABS: Band Neutrophils 20 % (0-1); Differential Total Cells Count 100; Lymphocytes 9 % (15-42); Monocytes 9 % (0-10); Reactive Lymphocytes 15 %; Segmented Neutrophils 47 % (40-80)
[2023-11-11 05:36] LABS: Blood Morphology Comment NOT SEEN (NOT SEEN); Platelet Estimate ADEQ
[2023-11-11] MEDS: AMOXICILLIN TRIHYDR 250 MG CAP PO SCH (08:27)
[2023-11-11] MEDS: POTASSIUM CL SA 10 MEQ TAB PO ONE (08:28)
[2023-11-11] MEDS: FUROSEMIDE 20 MG/ 2ML VIAL IV SCH (08:28)
[2023-11-11] MEDS: APIXABAN 5 MG TABLET PO SCH (08:28)
--- NOTE | 2023-11-11 10:04 | RAD REPORT ---
EXAM DESCRIPTION: RAD - Chest Single View - 11/11/2023 9:57 am CLINICAL HISTORY: pneumonia Chest pain. COMPARISON: Chest Single View dated 11/09/2023; Chest Single View dated 11/07/2023; CHEST SINGLE VIEW dated 01/26/2013; CHEST SINGLE VIEW dated 05/29/2008 FINDINGS: Portable technique limits examination quality. Since 11/09/2023, there has been mild improvement in the left mid lung and right upper lobe lung cons olidations. No new or progressive infiltrate seen. The heart is normal in size. No displaced fracture s.
--- NOTE | 2023-11-11 10:51 | P.PN ---
Subjective Date of Service: 11/11/23 Chief Complaint: Pneumonia, Pt is resting comfortably in bed. Currently using 1L BNC. Pt has productive wet cough. Waiting for PT eval. Echo shows EF 60 - 65% with grade I diastolic dysfunction. She had new onset A. fib on 11/09/23. No other complaints. Review of Systems General: Unremarkable Eyes: Unremarkable ENT: Unremarkable Respiratory: SOB with Excertion Cardiovascular: Unremarkable Gastrointestinal: Unremarkable Genitourinary: Unremarkable Musculoskeletal: Unremarkable Integumentary: Unremarkable Neurological: Unremarkable Lymphatics: Unremarkable Physical Examination - Vital Signs Temperature: 98.2 F Blood Pressure: 159/70 Pulse: 66 Respirations: 15 Pulse Ox (%): 91 - Physical Exam General: Alert, In no apparent distress, Oriented x3 HEENT: Atraumatic, Normocephalic, PERRLA Neck: Supple, 2+ carotid pulse no bruit, JVD not distended Respiratory: Clear to auscultation bilaterally, Normal air movement Cardiovascular: No edema, Normal pulses, Regular rate/rhythm, Normal S1 S2 Capillary refill: <2 Seconds Gastrointestinal: Normal bowel sounds, Soft and benign, Non-distended Musculoskeletal: No clubbing, No swelling, No contractures Integumentary: No rashes, No breakdown, No significant lesion, No tenderness/swelling Neurological: Normal speech, Normal strength at 5/5 x4 extr, Normal tone, Sensation intact, Cranial nerves 3-12 intact Lymphatics: No axilla or inguinal lymphadenopathy - Studies Microbiology Data (last 24 hrs): 11/07/23 07:25 Blood - Blood Anaerobic Blood Culture - Final Streptococcus Pyogenes 11/07/23 07:25 Blood - Blood Gram Stain - Final Medications List Reviewed: Yes Assessment And Plan - Plan Severe sepsis secondary to pneumonia without shock / bacteremia: Will continue 1L BNC, prn BIPAP, rocephin and azithro. F/u blood cx. lactate is 2.8 Bacteremia: Blood cx is growing strep pyogenes. Will continue rocephin 2mg daily, + clindamycin and f/u blood cx. Acute hypoxic respiratory failure secondary to pneumonia: will continue t reatment listed above. CT chest and CXR shows multifocal pna. Atypical chest pain: Will r/o ACS. troponin is 39.5. Pt denies any chest pain. Consulted Cardiology. New onset A. fib RVR: HR has improved. Now 70. Will continue telemetry, metoprolol and Eliquis. Off therapeutic lovenox. Chronic Diastolic heart failure: BNP is 1348. Pt is euvolemic. Echo shows EF 60 - 65% with grade I diastolic dysfunction. Transaminitis: Will trend LFTs. AST 39. ALT 39 History hypertension: Continue home med. Recently started on Hyzaar Deconditioning: Consulted PT DVT ppx: lovenox. Code: full Dispo: Pending hospital course.
--- NOTE | 2023-11-11 11:56 | P.PN ---
Subjective Date of Service: 11/11/23 Chief Complaint: Pneumonia, Subjective: No new changes Review of Systems 10-point ROS is otherwise unremarkable Physical Examination - Vital Signs Temperature: 98.2 F Blood Pressure: 159/70 Pulse: 66 Respirations: 15 Pulse Ox (%): 91 - Physical Exam General: Alert, In no apparent distress HEENT: Atraumatic, PERRLA, EOMI Neck: Supple, JVD not distended Respiratory: Clear to auscultation bilaterally, Normal air movement Cardiovascular: Regular rate/rhythm, Normal S1 S2 Gastrointestinal: Normal bowel sounds, No tenderness Musculoskeletal: No tenderness Integumentary: No rashes Neurological: Normal speech, Normal tone, Normal affect Lymphatics: No axilla or inguinal lymphadenopathy - Studies Medications List Reviewed: Yes Assessment And Plan - Current Problems (Diagnosis) (1) Chronic heart failure Current Visit: Yes Status: Acute Plan: Continue lopressor 25 mg o BID start Losartan 25 mg daily start HCTZ 25 mg daily agree with IV lasix (2) HTN (hypertension) Current Visit: Yes Status: Acute Plan: BP is high today as above. (3) HLD (hyperlipidemia) Current Visit: Yes Status: Acute Plan: continue lipitor 40 mg daily. (4) Atrial fibrillation Current Visit: Yes Status: Acute Plan: Patient is un aware of history of AF, so might be new onset secondary to acute illiness currently in sinus rhythm Continue Lopressor 25 mg po BID Eliquis 5 mg po BID Qualifiers: Atrial fibrillation type: paroxysmal Qualified Code(s): I48.0 - Paroxysmal atrial fibrillation
--- NOTE | 2023-11-11 13:25 | P.PN ---
Subjective Date of Service: 11/11/23 Chief Complaint: Pneumonia, Subjective: Improving (Patient is doing better) Review of Systems (Patient is doing better no new complaints) General: Weakness Respiratory: Shortness of Breath Physical Examination - Vital Signs Temperature: 97.4 F Blood Pressure: 148/69 Pulse: 64 Respirations: 14 Pulse Ox (%): 92 - Physical Exam General: Alert, Oriented x3 Respiratory: Clear to auscultation bilaterally Cardiovascular: No edema, Regular rate/rhythm - Studies Medications List Reviewed: Yes Assessment And Plan - Current Problems (Diagnosis) (1) Bilateral pneumonia Current Visit: Yes Status: Acute Plan: Patient is doing better white count is declining procalcitonin is now 6.43 a significant decline is to p.o. levofloxacin and amoxicillin repeat cultures are pending ambulate plan to discharge home continue with high-dose p.o. levofloxacin vital signs all stable labs chest x-rays all reviewed reviewed Qualifiers: Pneumonia type: due to unspecified organism Lung location: unspecified part of lung Qualified Code(s): J18.9 - Pneumonia, unspecified organism (2) Atrial fibrillation Current Visit: Yes Status: Acute Plan: Patient has new onset of A-fib may be related to her underlying pneumonia DC albuterol agree with beta-blockers and anticoagulated with Lovenox need cardioversion if does not spontaneously cardiovert etiology has been consulted Qualifiers: Atrial fibrillation type: paroxysmal Qualified Code(s): I48.0 - Paroxysmal atrial fibrillation
--- NOTE | 2023-11-11 15:10 | EKG ---
Test Date: 2023-11-09 Test Time: 08:34:26 Director Of Field Sales: AIDEN MEASUREMENT RESULTS: Intervals: Rate: 136 MD: QRSD: 88 QT: 288 QTc: 433 [place]: P: MD: QRS: 7 T: 10 INTERPRETIVE STATEMENTS: Atrial fibrillation with rapid ventricular response Moderate voltage criteria for LVH, may be normal variant Possible Lateral infarct, age undetermined Possible Inferior infarct, age undetermined Abnormal ECG Compared to ECG 11/07/2023 15:54:51 Left ventricular hypertrophy now present Myocardial infarct finding now present Sinus rhythm no longer present Electronically Signed On 11-11-23 15:01:46 CDT by Lee Avila
[2023-11-11] MEDS: ALPRAZOLAM 0.25 MG TABLET PO PRN (22:43)
[2023-11-12] MEDS: levoFLOXacin 750 MG TAB PO SCH (09:25)
--- NOTE | 2023-11-12 09:43 | RAD REPORT ---
EXAM DESCRIPTION: RADChest Single View11/12/2023 5:48 am CLINICAL HISTORY: pneumonia COMPARISON: Chest Single View dated 11/11/2023; Chest Single View dated 11/09/2023; Chest Single View dated 11/07/2023; CHEST SINGLE VIEW dated 01/26/2013; Thorax W/ Con dated 11/07/2023 TECHNIQUE: Portable AP view of the chest. FINDINGS: Stable patchy bilateral airspace opacities compared to the prior exam, most suggestive of pneumonia. No pneumothorax or effusion. The cardiomediastinal contours are unremarkable. IMPRESSION: No significant interval change.
--- NOTE | 2023-11-12 11:07 | P.PN ---
Subjective Date of Service: 11/12/23 Chief Complaint: Pneumonia, Pt is resting comfortably in bed. Currently using 1L BNC. Will wean off oxygen. Pt has productive wet cough. Waiting for PT eval. Echo shows EF 60 - 65% with grade I diastolic dysfunction. She had new onset A. fib on 11/09/23. No other complaints. Review of Systems General: Unremarkable Eyes: Unremarkable ENT: Unremarkable Respiratory: SOB with Excertion Cardiovascular: Unremarkable Gastrointestinal: Unremarkable Genitourinary: Unremarkable Musculoskeletal: Unremarkable Integumentary: Unremarkable Neurological: Unremarkable Lymphatics: Unremarkable Physical Examination - Vital Signs Temperature: 97.7 F Blood Pressure: 168/81 Pulse: 68 Respirations: 16 Pulse Ox (%): 95 - Physical Exam General: Alert, In no apparent distress, Oriented x3 HEENT: Atraumatic, Normocephalic, PERRLA Neck: Supple, 2+ carotid pulse no bruit, JVD not distended Respiratory: Clear to auscultation bilaterally, Normal air movement Cardiovascular: No edema, Normal pulses, Regular rate/rhythm, Normal S1 S2 Capillary refill: <2 Seconds Gastrointestinal: Normal bowel sounds, Soft and benign, Non-distended Musculoskeletal: No clubbing, No swelling, No contractures Integumentary: No rashes, No breakdown Neurological: Normal speech, Normal strength at 5/5 x4 extr, Normal tone, Sensation intact Lymphatics: No axilla or inguinal lymphadenopathy - Studies Microbiology Data (last 24 hrs): 11/07/23 07:05 Blood - Blood Aerobic Blood Culture - Final No growth in 5 days. 11/07/23 07:05 Blood - Blood Anaerobic Blood Culture - Final No growth in 5 days. 11/07/23 07:25 Blood - Blood Aerobic Blood Culture - Final Streptococcus Pyogenes 11/07/23 07:25 Blood - Blood Anaerobic Blood Culture - Final Streptococcus Pyogenes 11/07/23 07:25 Blood - Blood Gram Stain - Final Medications List Reviewed: Yes Assessment And Plan - Plan Severe sepsis secondary to pneumonia without shock / bacteremia: Will continue 1L BNC, prn BIPAP, rocephin and azithro. F/u blood cx. lactate is 2.8 Bacteremia: Blood cx is growing strep pyogenes. Will continue rocephin 2mg daily, + clindamycin and f/u blood cx. Acute hypoxic respiratory failure secondary to pneumonia: will continue treatment listed above. CT chest and CXR shows multifocal pna. Will wean off oxygen. Atypical chest pain: Will r/o ACS. troponin is 39.5. Pt denies any chest pain. Consulted Cardiology. New onset A. fib RVR: HR has improved. Now 70. Will continue telemetry, metoprolol and Eliquis. Off therapeutic lovenox. Chronic Diastolic heart failure: BNP is 1348. Pt is euvolemic. Echo shows EF 60 - 65% with grade I diastolic dysfunction. Transaminitis: Will trend LFTs. AST 39. ALT 39 History hypertension: Continue home med. Recently started on Hyzaar Deconditioning: Consulted PT DVT ppx: lovenox. Code: full Dispo: Pending hospital course.
[2023-11-12 12:37] LABS: Anion Gap 11.5 mEq/L (5.0-15.0); Potassium 3.5 mEq/L (3.5-5.1)
[2023-11-12 12:56] LABS: Absolute Eosinophils 0.1 K/uL (0-0.5); Absolute Lymphocytes (CBC) 0.9 K/uL (0.7-4.9); Absolute Monocytes 0.7 K/uL (0.1-1.3); Absolute Neutrophil 9.1 K/uL (1.8-8.0); Basophils % 0.2 % (0-1.3); Eosinophils % 1.1 % (0-4.4); Hematocrit 37.6 % (36.0-45.0); Hemoglobin 12.6 g/dL (12.0-15.0); Lymphocytes % 8.2 % (15.3-44.8); MCH 30.2 pg (27.0-35.0); MCHC 33.5 g/dL (32.0-36.0); MCV 90.1 fL (80-100); MPV 8.8 fL (7.6-11.3); Monocytes % 6.2 % (3.3-12.3); Neutrophils % 84.3 % (41.7-73.7); Platelets 292 thou/uL (152-406); RBC Red Blood Cell Count 4.17 M/uL (3.86-4.86); Red Cell Distribution Width 13.4 % (12.1-15.2)
[2023-11-12] MEDS: LOSARTAN/HCTZ 50-12.5 PO SCH (15:22)
--- NOTE | 2023-11-12 16:05 | P.PN ---
Subjective Date of Service: 11/12/23 Chief Complaint: Pneumonia, Subjective: No new changes Review of Systems 10-point ROS is otherwise unremarkable Physical Examination - Vital Signs Temperature: 97.4 F Blood Pressure: 134/69 Pulse: 76 Respirations: 16 Pulse Ox (%): 96 - Physical Exam General: Alert, In no apparent distress HEENT: Atraumatic, PERRLA, EOMI Neck: Supple, JVD not distended Respiratory: Clear to auscultation bilaterally, Normal air movement Cardiovascular: Regular rate/rhythm, Normal S1 S2 Gastrointestinal: Normal bowel sounds, No tenderness Musculoskeletal: No tenderness Integumentary: No rashes Neurological: Normal speech, Normal tone, Normal affect Lymphatics: No axilla or inguinal lymphadenopathy - Studies Microbiology Data (last 24 hrs): 11/07/23 07:05 Blood - Blood Aerobic Blood Culture - Final No growth in 5 days. 11/07/23 07:05 Blood - Blood Anaerobic Blood Culture - Final No growth in 5 days. 11/07/23 07:25 Blood - Blood Aerobic Blood Culture - Final Streptococcus Pyogenes 11/07/23 07:25 Blood - Blood Anaerobic Blood Culture - Final Streptococcus Pyogenes 11/07/23 07:25 Blood - Blood Gram Stain - Final Medications List Reviewed: Yes Assessment And Plan - Current Problems (Diagnosis) (1) Chronic heart failure Current Visit: Yes Status: Acute Plan: Continue lopressor 25 mg o BID start Losartan 25 mg daily start HCTZ 12.5 mg daily switch lasix to 20 mg po daily (2) HTN (hypertension) Current Visit: Yes Status: Acute Plan: BP is high today as above. (3) HLD (hyperlipidemia) Current Visit: Yes Status: Acute Plan: continue lipitor 40 mg daily. (4) Atrial fibrillation Current Visit: Yes Status: Acute Plan: Patient is un aware of history of AF, so might be new onset secondary to acute illiness currently in sinus rhythm Continue Lopressor 25 mg po BID Eliquis 5 mg po BID Qualifiers: Atrial fibrillation type: paroxysmal Qualified Code(s): I48.0 - Paroxysmal atrial fibrillation
--- NOTE | 2023-11-12 16:15 | P.PN ---
Subjective Date of Service: 11/12/23 Chief Complaint: Pneumonia, Subjective: Improving (Feeling weak patient still complains of cough congestion and shortness of breathDoing better) Review of Systems Respiratory: Cough, Shortness of Breath Physical Examination - Vital Signs Temperature: 97.4 F Blood Pressure: 134/69 Pulse: 76 Respirations: 16 Pulse Ox (%): 96 - Physical Exam General: Alert, Oriented x3 HEENT: Atraumatic Neck: Supple Respiratory: Clear to auscultation bilaterally Cardiovascular: No edema, Regular rate/rhythm, Normal S1 S2 - Studies Microbiology Data (last 24 hrs): 11/07/23 07:05 Blood - Blood Aerobic Blood Culture - Final No growth in 5 days. 11/07/23 07:05 Blood - Blood Anaerobic Blood Culture - Final No growth in 5 days. 11/07/23 07:25 Blood - Blood Aerobic Blood Culture - Final Streptococcus Pyogenes 11/07/23 07:25 Blood - Blood Anaerobic Blood Culture - Final Streptococcus Pyogenes 11/07/23 07:25 Blood - Blood Gram Stain - Final Medications List Reviewed: Yes Assessment And Plan - Current Problems (Diagnosis) (1) Bilateral pneumonia Current Visit: Yes Status: Acute Plan: 38 years of age admitted with bilateral pneumonia. Patient to continue with the Eliquis and metoprolol aspect cardiology for acute onset of a fib Qualifiers: Pneumonia type: due to unspecified organism Lung location: unspecified part of lung Qualified Code(s): J18.9 - Pneumonia, unspecified organism (2) Atrial fibrillation Current Visit: Yes Status: Acute Plan: Patient has new onset of A-fib may be related to her underlying pneumonia DC albuterol agree with beta-blockers and anticoagulated with Lovenox need cardioversion if does not spontaneously cardiovert etiology has been consulted Qualifiers: Atrial fibrillation type: paroxysmal Qualified Code(s): I48.0 - Paroxysmal atrial fibrillation
[2023-11-12 21:00] VITALS: O2SAT 93
[2023-11-13 08:43] VITALS: TEMP 97.8
[2023-11-13 09:03] VITALS: BP 148/78
--- NOTE | 2023-11-13 11:12 | P.DS ---
Admission Date: 11/07/23 Discharge Date: 11/13/23 Disposition: ROUTINE DISCHARGE Discharge Condition: GOOD Reason for Admission: Pneumonia, Brief History of Present Illness: 78-year-old female with a past medical history of hypertension, cellulitis, resents to the emergency room with shortness of breath started 3 days ago. Getting progressively worse. She reports right-sided chest pain, radiates to the back, no reported history of UT, PCI. She reports shortness of breath is worse with exertion, she reports productive cough. She denies history of asthma, COPD, history of lung disease. No history of tobacco use, she reports chest pain no reported diaphoresis, headache, edema, nausea vomiting diarrhea. Plan to admit for atypical chest pain, sepsis secondary to pneumonia, Hypokalemia, Hypoxia, CT of the chest IMPRESSION: Multifocal airspace opacities as above, concerning for multifocal pneumonia. Chest x-ray IMPRESSION: New bilateral airspace opacities as above, may represent areas of early pneumonitis or nodules of indeterminate origin. sepsis secondary to pneumonia, laboratory evaluation elevated lactic 2.3 4.2, IV Rocephin, azithromycin ordered, nebs, potassium replacement, IV fluid normal saline x 2 L ordered, elevated BNP 1348, Lasix x 1 given, serial troponins ordered initial troponin 39.5, will order echo for the a.m., cardiology consult Hospital Course: Pt is a 78yo female with past medical history of hypertension, and cellulitis who presented with shortness of breath that started 3 day before this admission. It progressively worsened and became associated withproductive cough and right sided chest pain that radiated to the back. On admission, CT of the chest IMPRESSION: Multifocal airspace opacities as above, concerning for multifocal pneumonia. Chest x-ray IMPRESSION: New bilateral airspace opacities.Lab studies showed elevated lactate, BNP (1348) and troponin ( 39.5). We admitted pt for severe sepsis 2/2 pneumonia and bacteremia. We gave iv rocephin, azithro. blood cx grew strep pyogenes. We continued rocephin 2gm iv daily and clindamycin. She later developed A. finb with RVR likely due to the pneumonia. We started metoprolol and Eliquis. Echo showed EF 60 - 65% with grade I diastolic dysfunction. We Monitored LFTs and continue BP regimen. We down graded pt from ICU to med/surg floor. We also weaned her off oxygen and she worked well with Physical therapist. Pt was in NAD prior to discharge. Vital Signs/Physical Exam: Temp Pulse Resp BP Pulse Ox 97.8 F 75 16 148/78 H 96 11/13/23 08:00 11/13/23 08:48 11/13/23 08:00 11/13/23 08:48 11/13/23 08:00 Laboratory Data at Discharge: WBC 10.80 thou/uL (4.3-10.9) 11/12/23 11:55 Hgb 12.6 g/dL (12.0-15.0) 11/12/23 11:55 Hct 37.6 % (36.0-45.0) 11/12/23 11:55 Plt Count 292 thou/uL (152-406) 11/12/23 11:55 PT 15.1 SECONDS (9.5-12.5) H 11/07/23 07:05 INR 1.39 11/07/23 07:05 Sodium 136 mEq/L (136-145) 11/12/23 11:55 Potassium 3.5 mEq/L (3.5-5.1) 11/12/23 11:55 BUN 18 mg/dL (7-18) 11/12/23 11:55 Creatinine 0.67 mg/dL (0.55-1.02) 11/12/23 11:55 Glucose 120 mg/dL (74-106) H 11/12/23 11:55 Magnesium 2.4 mg/dL (1.6-2.4) 11/08/23 04:36 Total Bilirubin 2.2 mg/dL (0.2-1.0) H 11/07/23 07:05 AST 39 U/L (15-37) H 11/07/23 07:05 ALT 39 U/L (13-56) 11/07/23 07:05 Alkaline Phosphatase 68 U/L (45-117) 11/07/23 07:05 Home Medications: Omeprazole [Prilosec] 40 mg PO DAILY 01/27/13 Losartan/Hydrochlorothiazide [Losartan-Hctz 50-12.5 mg Tab] 1 each PO DAILY 11/07/23 Apixaban [Eliquis] 5 mg PO BID 30 Days #60 tab 11/13/23 Atorvastatin Calcium [Lipitor] 40 mg PO BEDTIME 90 Days #90 tab 11/13/23 Metoprolol Tartrate [Lopressor*] 25 mg PO BID 6AM 6PM 30 Days #60 tab 11/13/23 levoFLOXacin [Levaquin*] 750 mg PO DAILY 7 Days #7 tab 11/13/23 New Medications: Apixaban [Eliquis] 5 mg PO BID 30 Days #60 tab levoFLOXacin [Levaquin*] 750 mg PO DAILY 7 Days #7 tab Atorvastatin Calcium [Lipitor] 40 mg PO BEDTIME 90 Days #90 tab Metoprolol Tartrate [Lopressor*] 25 mg PO BID 6AM 6PM 30 Days #60 tab Physician Discharge Instructions: Continue ad kelly activity as tolerated. Take levaquin 750mg po daily and other home meds as prescribed. . Follow up with PCP within 1 - 2 weeks. Diet: AHA Activity: Ad kelly Followup: Joss Santiago MD [Primary Care Provider] -
== END 2023-11-13 12:15 | disposition home or self-care (01) | DRG 871 ==
LOC: ER 06:42 → ERHOLD 10:33 → 2ND 11:06 → 3RD-ICU 15:34 → 2ND 11-10 13:40
PROVIDERS: ADMIT Hospitalist; ATTEND Hospitalist
PROC: 4A033R1 Measurement of Arterial Saturation, Peripheral, Percutaneous Approach (ICD-10-PCS; principal; 2023-11-07)
PROC: 5A09557 Assistance with Respiratory Ventilation, Greater than 96 Consecutive Hours, Continuous Positive Airway Pressure (ICD-10-PCS; 2023-11-07)
DX: A40.0 Sepsis due to streptococcus, group A (principal); J18.9 Pneumonia, unspecified organism; J96.01 Acute respiratory failure with hypoxia; E87.20 Acidosis, unspecified; I50.32 Chronic diastolic (congestive) heart failure; I11.0 Hypertensive heart disease with heart failure; R65.20 Severe sepsis without septic shock; I48.0 Paroxysmal atrial fibrillation; E87.6 Hypokalemia; E78.5 Hyperlipidemia, unspecified; G89.29 Other chronic pain; M54.9 Dorsalgia, unspecified; M25.569 Pain in unspecified knee; K21.9 Gastro-esophageal reflux disease without esophagitis; R74.01 Elevation of levels of liver transaminase levels; Z11.52 Encounter for screening for COVID-19; Z79.01 Long term (current) use of anticoagulants; Z28.310 Unvaccinated for COVID-19; Z79.899 Other long term (current) drug therapy
CPT/HCPCS: 36415; 36600; 71045; 71260; 80048; 80076; 81001; 82805; 83605; 83735; 83880; 84145; 84439; 84443; 84484; 85025; 85610; 87040; 87070; 87077; 87081; 87186; 87205; 87804; 87811; 93005; 93306; 94640; 94660; 94760; 96374; 96375; 97116; 97161; 97530; 99284; C9113; J0360; J0696; J1940; J2405; J2919; J2920; J3475; J3480; J7030; J7050; J7512; J7613; Q9967